=== PATIENT | female | born 1950 | race Caucasian/White ===

== ENCOUNTER 2023-04-05 07:12 | Day surgery (SDC) | payer MEDICARE ==
[2023-04-05] MEDS: Sodium Chloride 0.9% 1,000 ML IV SCH (07:58)
[2023-04-05] MEDS ORDERED: Propofol 200 MG/20 ML SDV ONE (08:07)
[2023-04-05] MEDS ORDERED: fentaNYL 50 MCG/ML SDV ONE (08:08)
[2023-04-05] MEDS ORDERED: Midazolam 1 MG/ML 2 ML SDV ONE (08:08)
== END 2023-04-05 10:15 | disposition home or self-care (01) ==
LOC: JP.SDS 07:12
PROVIDERS: ATTEND Surgery
DX: Z12.11 Encounter for screening for malignant neoplasm of colon (principal); D12.2 Benign neoplasm of ascending colon; D12.4 Benign neoplasm of descending colon
CPT/HCPCS: 45385; 88305; J2250; J2704; J3010; J7030